=== PATIENT | female | born 1990 | race Caucasian/White ===

== ENCOUNTER 2018-07-07 10:10 | Emergency (ER) | payer MEDICAID ==
[2018-07-07 10:28] VITALS: BMI 27.4
[2018-07-07 10:42] VITALS: BP 120/79; PULSE 93; RESP 17; TEMP 99; O2SAT 97
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
--- NOTE | 2018-07-07 13:14 | RAD ---
PROCEDURE: Left Ankle Radiographs. HISTORY: left ankle pain s/p trauma COMPARISON: None available. FINDINGS: BONES: No acute displaced fracture. JOINTS: No dislocation. SOFT TISSUES: Soft tissue swelling. No evidence of radiopaque foreign body. OTHER FINDINGS: None. IMPRESSION: Soft tissue swelling. No acute displaced fracture or dislocation identified. If symptoms persist or if there is clinical concern, x-ray follow-up in 7-10 days should be considered.
== END 2018-07-07 12:35 | disposition home or self-care (01) ==
LOC: C.ER 10:10
DX: S93.402A Sprain of unspecified ligament of left ankle, initial encounter (principal); W01.0XXA Fall on same level from slipping, tripping and stumbling without subsequent striking against object, initial encounter; Y92.410 Unspecified street and highway as the place of occurrence of the external cause
CPT/HCPCS: 73610; 97116; 97161; 99284; G8978; G8979; G8980